=== PATIENT | female | born 1940 ===

== ENCOUNTER 2022-08-14 06:22 | Day surgery (SDC) | payer OTHER ==
[~2022-08-14] VITALS: Ht 149.9 cm; Wt 79.8 kg
[~2022-08-14 06:22] MED LIST: HYZAAR 100-12.1 EACH PO; NORVASC10 MG PO; ZOLOFT100 MG PO
== END 2022-08-14 16:30 | disposition home or self-care (01) ==
LOC: CIR.AMB 06:22
PROVIDERS: ATTEND Orthopaedic Surgery Hand Surgery
DX: M24.832 Other specific joint derangements of left wrist, not elsewhere classified (principal); Z20.822 Contact with and (suspected) exposure to COVID-19; E11.9 Type 2 diabetes mellitus without complications; E78.00 Pure hypercholesterolemia, unspecified; E78.3 Hyperchylomicronemia; I10 Essential (primary) hypertension
CPT/HCPCS: 25390; L8699